=== PATIENT | female | born 1985 | race Caucasian/White ===

== ENCOUNTER 2018-12-06 15:02 | Emergency (ER) | payer OTHER ==
[~2018-12-06] VITALS: Ht 157.5 cm; Wt 74.8 kg
[~2018-12-06 15:02] MED LIST: DOL10 PO
[2018-12-06 15:25] VITALS: BP 127/78
--- NOTE | 2018-12-06 15:48 | NUR ---
PT AMBULATED TO ER BED 7
[2018-12-06] MEDS ORDERED: NACL 0.9% 1,000 ML IV ONE (16:15)
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
[2018-12-06 17:15] LABS: BASOPHILS % (AUTO) 0.4 % (0.0-2.0); EOSINOPHILS % (AUTO) 0.2 % (0.0-4.0); HEMATOCRIT 36.3 % (36-48); LYMPHOCYTES # (AUTO) 1.1 K/uL (2.5-16.5); LYMPHOCYTES % (AUTO) 18.8 % (20.5-51.1); MEAN CORPUSCULAR HEMOGLOBIN 28 pg (27-31); MEAN CORPUSCULAR HGB CONC 33 g/dL (33-37); MONOCYTES # (AUTO) 0.3 K/uL (0.8-1.0); MONOCYTES % (AUTO) 5.9 % (1.7-9.3); NEUTROPHILS # (AUTO) 4.3 K/uL (1.8-7.7); NEUTROPHILS % (AUTO) 74.7 % (42.2-75.2); PLATELET COUNT (AUTO) 147 K/uL (140-450); RED BLOOD CELL COUNT(AUTO) 4.32 MIL/uL (4.20-5.40); RED CELL DISTRIBUTION WIDTH 16.5 % (11.6-13.7); WHITE BLOOD COUNT (AUTO) 5.8 K/uL (4.8-10.8)
[2018-12-06 17:32] LABS: ALBUMIN 3.5 g/dL (3.4-5.0); ANION GAP 12.6 (8-16); CARBON DIOXIDE 24.6 mmol/L (21-32); CREATININE 0.6 mg/dL (0.6-1.3); POTASSIUM 3.2 mmol/L (3.5-5.1); TOTAL BILIRUBIN 0.7 mg/dL (0.0-1.0)
--- NOTE | 2018-12-06 17:52 | NUR ---
[facility] BEDSIDE
[2018-12-06] MEDS ORDERED: metroNIDAZOLE 250 MG TAB PO ONE (18:55)
[2018-12-06] MEDS ORDERED: cefTRIAXone 250 MG in LIDOCAINE MPF 1% - 5 mL VIAL 0.9 ML IM ONE (18:55)
[2018-12-06] MEDS ORDERED: AZITHROMYCIN 250 MG TAB PO ONE (18:55)
[2018-12-06 19:29] VITALS: BP 127/78
--- NOTE | 2018-12-06 19:30 | NUR ---
Patient discharged with v/s stable. Written and verbal after care instructions given and explained. Patient alert, oriented and verbalized understanding of instructions. Ambulatory with steady gait. All questions addressed prior to discharge. ID band removed. Patient advised to follow up with PMD. Rx of Plan B, Zofran, Truvada and Raltegravir given. Patient educated on indication of medication including possible reaction and side effects. Opportunity to ask questions provided and answered.
== END 2018-12-06 19:29 | disposition home or self-care (01) ==
LOC: MED 15:02
DX: T74.21XA Adult sexual abuse, confirmed, initial encounter (principal); N93.9 Abnormal uterine and vaginal bleeding, unspecified; Z79.899 Other long term (current) drug therapy; Z59.0 Homelessness
CPT/HCPCS: 36415; 80053; 85025; 96372; 99283; J0696; J2001; J7030

== ENCOUNTER 2019-07-13 18:32 | Emergency (ER) | payer OTHER ==
[~2019-07-13] VITALS: Ht 157.5 cm; Wt 85.4 kg
[2019-07-13 19:02] VITALS: BP 120/73
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
--- NOTE | 2019-07-13 19:08 | NUR ---
AMBULATES TO LOBBY WITH UPRIGHT STEADY GAIT. AWAITING AVAILABLE BED.
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
--- NOTE | 2019-07-13 19:35 | NUR ---
TO ER BED 2
[2019-07-13 20:43] VITALS: BP 120/73
--- NOTE | 2019-07-13 20:43 | NUR ---
Patient discharged with v/s stable. Written and verbal after care instructions given and explained. Patient alert, oriented and verbalized understanding of instructions. Ambulatory with steady gait. All questions addressed prior to discharge. ID band removed. Patient advised to follow up with PMD. Rx of PENICILLIN; NAPROSYN given. Patient educated on indication of medication including possible reaction and side effects. Opportunity to ask questions provided and answered. DISCHARGED BY DR. GRIMES.
== END 2019-07-13 20:43 | disposition home or self-care (01) ==
LOC: MED 18:32
DX: K08.89 Other specified disorders of teeth and supporting structures (principal); R19.7 Diarrhea, unspecified; F17.210 Nicotine dependence, cigarettes, uncomplicated; Z71.6 Tobacco abuse counseling; Z79.899 Other long term (current) drug therapy
CPT/HCPCS: 99283

== ENCOUNTER 2019-11-25 16:12 | Inpatient (IN) | payer OTHER ==
[~2019-11-25] VITALS: Ht 157.5 cm; Wt 72.6 kg
[2019-11-25 16:21] VITALS: BP 152/79
--- NOTE | 2019-11-25 16:54 | NUR ---
PT TO BED 11 Addendum: 11/25/19 at 1655 by [facility] BED 4
--- NOTE | 2019-11-25 17:08 | NUR ---
34 YO FEMALE CO ABCESS ON HER LEFT BUTTOCKS SINCE LAST WEEK. PT STATED THAT SHE TRIED TO CUT IT OPEN HERSELF BUT WAS UNABLE TO GET ANY DRAINAGE. NO DRAINAGE OR BLEEDING OBSERVED. PT CO 9/10 AND IS UNABLE TO SIT ON THAT SIDE.
[2019-11-25] MEDS ORDERED: LIDOCAINE/EPI 1% 1:100000 20 ML VIAL INJ ONE (17:25)
[2019-11-25] MEDS ORDERED: KETOROLAC 30 MG/ML VIAL IM ONE (17:25)
[2019-11-25] MEDS ORDERED: CLINDAMYCIN 600 MG in DEXTROSE 5% 50 ML IV ONE (18:10)
[2019-11-25] MEDS ORDERED: MORPHINE SULFATE 4 MG/ML SYR IVP ONE (18:10)
[2019-11-25] MEDS ORDERED: ONDANSETRON 4 MG/2 ML VIAL IVP ONE (18:10)
[2019-11-25] MEDS ORDERED: CLINDAMYCIN 600 MG/4 ML VIAL ONE (18:44)
--- NOTE | 2019-11-25 19:16 | NUR ---
REPORT GIVEN TO WILLIAM CARRASCO
--- NOTE | 2019-11-25 19:16 | NUR ---
RECEIVED REPORT FROM LUNA FLORES. WILL CONT CARE AT THIS TIME.
[2019-11-25 19:21] LABS: BASOPHILS % (AUTO) 0.4 % (0.0-2.0); EOSINOPHILS # (AUTO) 0.2 K/uL (0-0.4); EOSINOPHILS % (AUTO) 1.8 % (0.0-4.0); HEMATOCRIT 33.2 % (36-48); HEMOGLOBIN 10.6 g/dL (12.0-16.0); LYMPHOCYTES # (AUTO) 1.6 K/uL (2.5-16.5); MEAN CORPUSCULAR HEMOGLOBIN 25 pg (27-31); MEAN CORPUSCULAR HGB CONC 32 g/dL (33-37); MEAN CORPUSCULAR VOLUME 79.7 fL (80-94); MONOCYTES % (AUTO) 9.6 % (1.7-9.3); NEUTROPHILS # (AUTO) 7.3 K/uL (1.8-7.7); NEUTROPHILS % (AUTO) 72.2 % (42.2-75.2); PLATELET COUNT (AUTO) 280 K/uL (140-450); RED BLOOD CELL COUNT(AUTO) 4.16 MIL/uL (4.20-5.40); RED CELL DISTRIBUTION WIDTH 16.6 % (11.6-13.7); WHITE BLOOD COUNT (AUTO) 10.1 K/uL (4.8-10.8)
[2019-11-25 19:30] VITALS: BP 97/51
[2019-11-25 19:35] LABS: CARBON DIOXIDE 29.8 mmol/L (21-32); CREATININE 0.7 mg/dL (0.6-1.3); POTASSIUM 3.8 mmol/L (3.5-5.1)
[2019-11-25 19:40] LABS: PROTHROMBIN TIME 10.4 secs (10.8-13.4)
--- NOTE | 2019-11-25 20:15 | NUR ---
Patient will be admitted to care of DR. LOGAN. Admited to M/S. Will go to room 112B. Belongings list completed. Report to LUNA BOB.
[2019-11-25 20:30] VITALS: BP 97/51
[2019-11-25] MEDS ORDERED: MAG SULF 2000 MG/WATER PREMIX 50 ML IV PRN (20:30)
[2019-11-25] MEDS ORDERED: diphenhydrAMINE 50 MG/ML VIAL IVP PRN (20:30)
[2019-11-25] MEDS ORDERED: BISACODYL 10 MG SUPP RC PRN (20:30)
[2019-11-25] MEDS ORDERED: ZOLPIDEM 5 MG TAB PO PRN (20:30)
[2019-11-25] MEDS ORDERED: cloNIDine 0.1 MG TAB PO PRN (20:30)
[2019-11-25] MEDS ORDERED: ACETAMINOPHEN 325 MG TAB PO PRN (20:30)
[2019-11-25] MEDS ORDERED: HYDROcodone/APAP 5/325 MG 1 TAB TAB PO PRN (20:30)
[2019-11-25] MEDS ORDERED: ONDANSETRON 4 MG/2 ML VIAL IVP PRN (20:30)
[2019-11-25] MEDS ORDERED: ALUMINUM HYD/MAG/SIMETHICONE 30 ML UDC PO PRN (20:30)
[2019-11-25] MEDS ORDERED: DOCUSATE SODIUM 250 MG GELCAP PO PRN (20:30)
[2019-11-25] MEDS ORDERED: VANCOMYCIN PER PHARMACY MC PRN (20:30)
[2019-11-25] MEDS ORDERED: ACETAMINOPHEN 650 MG SUPP RC PRN (20:30)
[2019-11-25] MEDS ORDERED: MAGNESIUM OXIDE 400 MG TAB PO PRN (20:30)
[2019-11-25] MEDS ORDERED: SODIUM PHOSPHATE 118 ML ENEM RC PRN (20:30)
[2019-11-25] MEDS ORDERED: guaiFENesin DM 200/20 MG-10 ML 10 ML UDC PO PRN (20:30)
[2019-11-25] MEDS ORDERED: POTASSIUM CHLORIDE 10 MEQ TABER PO PRN (20:30)
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
[2019-11-25] MEDS ORDERED: cefTRIAXone 1,000 MG VIAL ONE (22:07)
--- NOTE | 2019-11-25 23:04 | NUR ---
Patient's Plan of Care was discussed and reviewed with MANAGER BAKERY: PAULINO ATKINS
[2019-11-25] MEDS ORDERED: VANCOMYCIN HCL 1,500 MG in NACL 0.9% 250 ML IV SCH (23:45)
[2019-11-26] VITALS: BP 93/63
[2019-11-26] MEDS ORDERED: VANCOMYCIN 1,000 MG VIAL ONE (00:30)
[2019-11-26] MEDS ORDERED: VANCOMYCIN 500 MG VIAL ONE (00:30)
--- NOTE | 2019-11-26 01:40 | NUR ---
SLEEPING COMFORTABLY IN BED.
--- NOTE | 2019-11-26 03:30 | NUR ---
TOLERATED ALL ANTIBIOTICS GIVEN. COMFORTABLE IN BED.
[2019-11-26] MEDS: HYDROcodone/APAP 5/325 MG 1 TAB TAB PO PRN (06:27)
--- NOTE | 2019-11-26 07:25 | NUR ---
STILL SLEEPING COMFORTABLY IN BED. CONDITION REMAIN STABLE. ENDORSED TO AM SHIFT NURSE FOR CONTINUITY OF CARE.
--- NOTE | 2019-11-26 07:28 | NUR ---
RECEIVED REPORT FROM NIGHT NURSE. PATIENT IN STABLE CONDITION. PATIENT AAOX3-4. INTRODUCED SELF. IV INTACT AND PATIENT TO RIGHT AC 24G SALINE LOCK. NO S/S OF DISTRESS NOTED. PLANS OF CARE DISCUSSED. CALL LIGHT WITHIN REACH.
[2019-11-26 08:00] VITALS: BP 119/65
[2019-11-26] MEDS ORDERED: ENOXAPARIN 40 MG/0.4 ML SYR SUBQ SCH (09:00)
[2019-11-26] MEDS ORDERED: METHADONE 10 MG TAB PO SCH (09:00)
--- NOTE | 2019-11-26 09:30 | NUR ---
PATIENT HAS BEEN SCREENED AND CATEGORIZED LOW NUTRITION RISK. PATIENT WILL BE SEEN WITHIN 7 DAYS OF ADMISSION. 12/02/[address]
--- NOTE | 2019-11-26 09:43 | NUR ---
DR. BALDERRAMA MADE AWARE IN REGARDS TO PATIENT STATING THAT SHE HAS NOT BEEN TAKING METHADONE OR GOING TO THE CLINIC "FOR 2-3 YEARS NOW." PER MD SHE WILL ORDER ANOTHER MEDICATION. LUCAS IN PHARMACY ALSO MADE AWARE.
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
--- NOTE | 2019-11-26 11:30 | NUR ---
RECEIVED CALL FROM LIAN FAROOQ. RECEIVED ORDER TO OBTAIN CONSENT FOR I & D ABSCESS, HOLD LUNCH TRAY, KEEP PATIENT NPO UNTIL THE PROCEDURE IS DONE.
[2019-11-26] MEDS ORDERED: cloNIDine 0.1 MG TAB PO PRN (11:40)
[2019-11-26] MEDS ORDERED: LIDOCAINE MPF 1% 10 MG/ML VIAL INJ SCH (11:59)
[2019-11-26 13:18] LABS: ANION GAP 11.8 (8-16); CARBON DIOXIDE 28.5 mmol/L (21-32); CREATININE 0.6 mg/dL (0.6-1.3); POTASSIUM 4.3 mmol/L (3.5-5.1)
--- NOTE | 2019-11-26 14:30 | NUR ---
DR. HOPE AT BEDSIDE WITH PATIENT FOR I AND D PROCEDURE TO LEFT BUTTOCKS.
[2019-11-26] MEDS ORDERED: LIDOCAINE 1% 500 MG/50 ML VIAL INJ SCH (14:55)
[2019-11-26] MEDS: MORPHINE SULFATE 2 MG/ML SYR IVP PRN ×2 (15:00→21:52)
[2019-11-26] MEDS: VANCOMYCIN 1,000 MG in DEXTROSE 5% 250 ML IV SCH (15:00)
--- NOTE | 2019-11-26 15:00 | NUR ---
PATIENT'S LEFT BUTTOCK I AND D COVERED WITH DRY GAUZE. PER DR. HOPE PACK LEFT BUTTOCKS I AND D WITH PACKING STRIP AND COVER WITH DRY GAUZE.
[2019-11-26 16:00] VITALS: BP 106/65
[2019-11-26] MEDS: LORazepam 2 MG/ML VIAL IVP PRN (16:40)
--- NOTE | 2019-11-26 16:40 | NUR ---
IVP ATIVAN ORDERED GIVEN FOR PATIENT COMPLAIN OF ANXIETY AND AGITATION.
--- NOTE | 2019-11-26 17:40 | NUR ---
PATIENT IS IN BED, RESTING QUIETLY.
--- NOTE | 2019-11-26 18:00 | NUR ---
PATIENT REMAINS STABLE. PATIENT EATING DINNER. NO S/S OF DISTRESS NOTED. CALL LIGHT WITHIN REACH.
--- NOTE | 2019-11-26 19:20 | NUR ---
PATIENT IN STABLE CONDITION. WILL ENDORSE TO NIGHT NURSE FOR CONTINUITY OF CARE.
--- NOTE | 2019-11-26 19:25 | NUR ---
RECD. RESTING IN BED, SEEMS DROWSY, A/OX4. RESPIRATION EVEN AND UNLABORED. IV SALINE LOCK AT THE RIGHT AC G24, PATENT AND INTACT. SAFETY MEASURES ENFORCED. BED IN THE LOWEST POSITION, CALL LIGHT IN REACH. INCISION IN THE LEFT BUTTOCKS, COVERED WITH DRESSING DRY AND INTACT. PLAN OF CARE FOR THE SHIFT DISCUSSED. JUST NOD. DENIES PAIN 0/10.
--- NOTE | 2019-11-26 19:48 | NUR ---
Patient's Plan of Care was discussed and reviewed with BLUEPRINT DEVELOPER: PAULINO ATKINS
[2019-11-26 21:21] VITALS: BP 103/56
[2019-11-27] VITALS: BP 99/56
[2019-11-27] MEDS: VANCOMYCIN 1,000 MG in DEXTROSE 5% 250 ML IV SCH (01:09)
--- NOTE | 2019-11-27 01:15 | NUR ---
VANCO IV GIVEN ORDERED. NO A/R NOTED. WILL CONTINUE TO MONITOR.
--- NOTE | 2019-11-27 03:00 | NUR ---
IV LEAKING, CHARGE NURSE LIBBY TRIED THREE TIMES, PATIENT IS A HARDSTICK.
[2019-11-27] MEDS: HYDROcodone/APAP 5/325 MG 1 TAB TAB PO PRN (03:43)
--- NOTE | 2019-11-27 03:45 | NUR ---
NEW IV LINE INSERTED BY LUNA MATTA OF ER AT RIGHT UPPER CHEST.
[2019-11-27] MEDS: LORazepam 2 MG/ML VIAL IVP PRN (04:30)
--- NOTE | 2019-11-27 04:30 | NUR ---
AGITATED, MEDICATED WITH ATIVAN PER MD ORDER.
--- NOTE | 2019-11-27 04:35 | NUR ---
IV INFILTRATED. VANCOMYCIN NOT FULLY INFUSED. WILL INFORMED
--- NOTE | 2019-11-27 05:00 | NUR ---
PAGED DR. FIELDS, COP EXAMINER FOR DR. BALDERRAMA.
--- NOTE | 2019-11-27 05:50 | NUR ---
INFORMED DR. FIELDS PATIENT IS A HARDSTICK, UNABLE TO INFUSED FULLY VANCOMYCIN, IF WE CAN ORDER PICC LINE. MAY ORDER PICC LINE, CHARGE NURSE LIBBY MADE AWARE.
[2019-11-27] MEDS ORDERED: LORazepam 2 MG/ML VIAL IM/IVP PRN (06:05)
[2019-11-27] MEDS ORDERED: MORPHINE SULFATE 2 MG/ML SYR IM/IVP PRN (06:05)
--- NOTE | 2019-11-27 06:38 | NUR ---
ORDERED PICC LINE FOR PT.CALLED PICC LINE NURSE AND LEFT MESSAGE.
--- NOTE | 2019-11-27 06:50 | NUR ---
BP CHECKED BEFORE ADMINISTRATION OF MORPHINE IM, BP - 94/67, HR -78. PATIENT GOT HYSTERICAL, WANTS MORPHINE TO BE GIVEN EVEN IF THE BLOOD PRESSURE IS LOW. THROW HER GOWN ON THE FLOOR AND PUT ON HER CLOTHES. ELECTRONIC SCALE TESTER SAMI ARANGO AND CHARGE NURSE LIBBY, PATIENT WILL SIGN AMA.
--- NOTE | 2019-11-27 07:00 | NUR ---
CALLED HER MOM TO PICK HER UP, STILL CURSING, SAYING BAD WORDS. EXPLAINED TO THE PATIENT THAT IF SHE GO ON AMA, IT WILL BE RISKY, SHE IS STILL ON ANTIBIOTICS AND HER INFECTION MIGHT GO WORSE. HER INCISION IN THE LEFT BUTTOCKS NEED TO BE TAKEN CARE OF IN THE HOSPITAL. DOES NOT LISTEN TO NURSE, CONTINUED PACKING HER BELONGINGS.
--- NOTE | 2019-11-27 07:15 | NUR ---
EXPLAINED TO THE PATIENT THAT IT IS FOR HER OWN SAFETY THAT MORPHINE CANNOT BE GIVEN BECAUSE HER BLOOD PRESSURE IS LOW, THERE IS A TENDENCY FOR THE BP TO GO DOWN IF MORPHINE WILL BE GIVEN. NORCO WAS JUST RECENTLY GIVEN, AND PATIENT DOES NOT LIKE IT.
--- NOTE | 2019-11-27 07:35 | NUR ---
WENT OUT OF THE ROOM AND AMBULATED TO THE LOBBY WHERE MOTHER WILL PICK HER UP FOR HOME.
--- NOTE | 2019-11-27 07:40 | NUR ---
DR. YANDEL BALDERRAMA INFORMED PATIENT WENT ON AMA. Addendum: 11/27/19 at 0852 by Danielle Campos LVN CORRECTION: INFORMED DR. YANDEL BALDERRAMA PATIENT WENT ON AMA.
--- NOTE | 2019-11-27 08:32 | NUR ---
WOUND CARE CONSULT NOT DONE, PT. AMMiki
== END 2019-11-27 07:35 | disposition left against medical advice (07) | DRG 364 ==
LOC: MED 16:12 → MTU 19:35
PROVIDERS: ADMIT Internal Medicine; ATTEND Internal Medicine
PROC: 0H98XZZ Drainage of Buttock Skin, External Approach (ICD-10-PCS; principal; 2019-11-25)
PROC: 0J990ZZ Drainage of Buttock Subcutaneous Tissue and Fascia, Open Approach (ICD-10-PCS; 2019-11-26)
DX: L02.31 Cutaneous abscess of buttock (principal); F11.10 Opioid abuse, uncomplicated; Z90.49 Acquired absence of other specified parts of digestive tract; L03.317 Cellulitis of buttock; Z88.8 Allergy status to other drugs, medicaments and biological substances; Z83.3 Family history of diabetes mellitus; Z82.5 Family history of asthma and other chronic lower respiratory diseases; Z82.49 Family history of ischemic heart disease and other diseases of the circulatory system; Z53.29 Procedure and treatment not carried out because of patient's decision for other reasons
CPT/HCPCS: 36415; 80048; 83605; 85025; 85610; 85730; 87040; 87081; 96365; 96372; 96375; 99285; J0696; J1650; J1885; J2001; J2060; J2270; J2405; J3370; J3490; J7030; J7060